=== PATIENT | male | born 1980 | race Caucasian/White ===

== ENCOUNTER 2024-06-07 10:10 | Inpatient (IN) | payer MEDICAID ==
[~2024-06-07] VITALS: Ht 162.6 cm; Wt 64.0 kg
[2024-06-07 10:40] LABS: BASOPHILS % 0.6 % (0.0-2.0); EOSINOPHILS % 0.9 % (0.0-5.0); HEMOGLOBIN. 13.7 g/dL (14.0-18.0); LYMPHOCYTES % 38.4 % (20.0-50.0); MEAN CORPUSCULAR HEMOGLOBIN 30.8 pg (28.0-32.0); MEAN CORPUSCULAR HGB CONC 33.4 g/dL (31.0-37.0); MEAN CORPUSCULAR VOLUME 92.1 fL (80.0-94.0); MONOCYTES % 9.3 % (2.0-8.0); NEUTROPHILS % 50.8 % (40.0-76.0); PLATELET 157 x1000/uL (130-400); RED BLOOD CELL COUNT 4.45 mill/uL (4.7-6.1); RED CELL DISTRIBUTION WIDTH 15.2 % (11.6-14.6); WHITE BLOOD COUNT 6.9 x1000/uL (4.5-11.0)
[2024-06-07 10:48] LABS: CHLORIDE 104 mEq/L (98-107); POTASSIUM 3.8 mEq/L (3.5-5.1); SODIUM 139 mEq/L (136-145)
[2024-06-07 10:49] LABS: CARBON DIOXIDE 24 mEq/L (21-32)
[2024-06-07 10:50] LABS: CALCIUM 8.3 mg/dL (8.7-10.4)
[2024-06-07 10:54] LABS: CREATININE 0.7 mg/dL (0.6-1.3); GLUCOSE 98 mg/dL (70-105); UREA NITROGEN BLOOD 6 mg/dL (9-23)
[2024-06-07 11:27] LABS: ETHANOL BLOOD 571 mg/dL (<10)
[2024-06-07] MEDS ORDERED: LORAZEPAM 2MG/ML INJ IM PRN (16:15)
[2024-06-07] MEDS ORDERED: CLONIDINE 0.1MG TABLET PO PRN (16:15)
[2024-06-07] MEDS ORDERED: DOCUSATE SODIUM 100MG CAPSULE PO PRN (16:15)
[2024-06-07] MEDS ORDERED: GUAIFENESIN 200MG/10ML SUGAR FREE UDC PO PRN (16:15)
[2024-06-07] MEDS ORDERED: CHLORDIAZEPOXIDE 25MG CAPSULE PO PRN (16:15)
[2024-06-07] MEDS ORDERED: MAGNESIUM/ALUMINUM HYDROXIDE/SIMETHICONE 30ML UDC PO PRN (16:15)
[2024-06-07] MEDS ORDERED: ACETAMINOPHEN 325MG TABLET PO PRN ×2 (16:15)
[2024-06-07] MEDS ORDERED: IPRATROPIUM/ALBUTEROL 0.5-3(2.5)MG/3ML NEB HHN PRN (16:15)
[2024-06-07] MEDS ORDERED: ONDANSETRON HCL 4MG/2ML INJ IV PRN (16:15)
[2024-06-07 18:39] LABS: TRIGLYCERIDE 60 mg/dL (0-150)
[2024-06-07 18:40] LABS: LDL CHOLESTEROL 115 mg/dL (5-100)
[2024-06-07 18:41] LABS: ALANINE AMINOTRANSFERASE 73 IU/L (10-49); ALBUMIN 4.2 g/dL (3.2-4.8); ASPARTATE AMINOTRANSFERASE 144 IU/L (<34); BILIRUBIN DIRECT 0.2 mg/dL (<=3.0); CHOLESTEROL 216 mg/dL (<200); HDL CHOLESTEROL 92 mg/dL (>55)
[2024-06-07 18:42] LABS: BILIRUBIN TOTAL 0.5 mg/dL (0.1-1.0); PROTEIN TOTAL 8.2 g/dL (6.0-8.3)
[2024-06-07 18:43] LABS: T4 FREE 1.01 ng/dL (0.89-1.76)
[2024-06-07 18:44] LABS: THYROID STIMULATING HORMONE 0.48 uIU/mL (0.55-4.78); VITAMIN B12 SERUM 703 pg/mL (211-911)
[2024-06-07] MEDS: FOLIC ACID 1 MG, THIAMINE HCL 100 MG, MVI, ADULT NO.1 10 ML in DEXTROSE 5% WATER 1,000 ML IV ONE (20:22)
[2024-06-07] MEDS: MULTIVITAMINS,THER W-MINERALS TABLET PO SCH (20:22)
[2024-06-07] MEDS: THIAMINE HCL 100MG TABLET PO SCH (20:23)
[2024-06-07] MEDS: FOLIC ACID 1MG TABLET PO SCH (20:23)
[2024-06-07 22:01] VITALS: BP 118/73; PULSE 87; RESP 18; TEMP 98.3
[2024-06-07 23:35] VITALS: BP 129/75; PULSE 92; RESP 18; TEMP 98
[2024-06-08] VITALS: BP 129/75; PULSE 92; RESP 20; TEMP 98.8
[2024-06-08 04:00] VITALS: BP 126/68; PULSE 82; RESP 20; TEMP 99
[2024-06-08 06:52] LABS: CARBON DIOXIDE 20 mEq/L (21-32); CHLORIDE 99 mEq/L (98-107); POTASSIUM 3.9 mEq/L (3.5-5.1); SODIUM 135 mEq/L (136-145)
[2024-06-08 06:53] LABS: CALCIUM 8.4 mg/dL (8.7-10.4)
[2024-06-08 06:57] LABS: CREATININE 0.6 mg/dL (0.6-1.3); GLUCOSE 60 mg/dL (70-105)
[2024-06-08 07:15] LABS: HEMOGLOBIN. 12.4 g/dL (14.0-18.0); MEAN CORPUSCULAR HEMOGLOBIN 29.7 pg (28.0-32.0); MEAN CORPUSCULAR HGB CONC 32.5 g/dL (31.0-37.0); MEAN CORPUSCULAR VOLUME 91.1 fL (80.0-94.0); MEAN PLATELET VOLUME 8.5 fl (7.4-10.4); PLATELET 120 x1000/uL (130-400); RED BLOOD CELL COUNT 4.17 mill/uL (4.7-6.1); RED CELL DISTRIBUTION WIDTH 14.9 % (11.6-14.6)
[2024-06-08 07:32] LABS: DIFFERENTIAL COMMENT 1
[2024-06-08 08:00] VITALS: BP 135/82; PULSE 85; RESP 20; TEMP 97.5
[2024-06-08 09:14] LABS: UREA NITROGEN BLOOD 7 mg/dL (9-23)
[2024-06-08 12:00] VITALS: BP 134/79; PULSE 78; RESP 18; TEMP 97.6
[2024-06-08 16:00] VITALS: BP 149/91; PULSE 77; RESP 20; TEMP 97.7
[2024-06-08] MEDS ORDERED: CHLORDIAZEPOXIDE 10MG CAPSULE PO PRN (16:15)
[2024-06-08 20:00] VITALS: BP 161/81; PULSE 79; RESP 18; TEMP 98.6
[2024-06-08] MEDS: CHLORDIAZEPOXIDE 10MG CAPSULE PO SCH (21:16)
[2024-06-09] VITALS: BP 149/86; PULSE 77; RESP 20; TEMP 99.5
[2024-06-09 01:10] LABS: PLATELET ESTIMATE DECREASED
[2024-06-09 04:31] VITALS: BP 142/81; PULSE 79; RESP 18; TEMP 99
[2024-06-09 07:19] LABS: IRON 259 ug/dL (65-175)
[2024-06-09 07:24] LABS: TOTAL IRON BINDING CAPACITY 340 ug/dl (250-425)
[2024-06-09 08:00] VITALS: BP 148/95; PULSE 86; RESP 18; TEMP 98.7
[2024-06-09] MEDS ORDERED: FOLI-43 PO (08:50)
[2024-06-09] MEDS ORDERED: ATOR20TA65 MT (08:50)
[2024-06-09] MEDS ORDERED: FERR325T6 MT (08:50)
[2024-06-09] MEDS ORDERED: THIA100T72 PO (08:50)
[2024-06-09 12:00] VITALS: BP 133/85; PULSE 88; RESP 20; TEMP 98.4
[2024-06-09] MEDS ORDERED: AMLO5TAB88 MT (12:15)
[2024-06-09 14:29] VITALS: BP 129/70; PULSE 79; TEMP 97.6; O2SAT 98
[2024-06-09 16:00] VITALS: BP 140/92; PULSE 90; RESP 20; TEMP 97.7
== END 2024-06-09 15:55 | disposition home or self-care (01) | DRG 52 ==
LOC: ER 10:10 → 5WST 14:08 → EDBD 14:08 → EDBEDREQ 14:10 → 7WST 23:52
PROVIDERS: ADMIT Preventive Medicine Clinical Informatics; ATTEND Preventive Medicine Clinical Informatics
DX: G92.8 Other toxic encephalopathy (principal); D63.8 Anemia in other chronic diseases classified elsewhere; F10.229 Alcohol dependence with intoxication, unspecified; E78.5 Hyperlipidemia, unspecified; E03.8 Other specified hypothyroidism; R74.01 Elevation of levels of liver transaminase levels; Y90.9 Presence of alcohol in blood, level not specified; Z59.00 Homelessness unspecified
CPT/HCPCS: 36415; 76700; 80048; 80061; 80076; 80320; 82607; 82728; 82746; 83540; 83550; 83735; 84439; 84443; 85025; 99285; J3411; J3490; J7070; G0480